=== PATIENT | female | born 1940 | race Caucasian/White ===

== ENCOUNTER → 2016-12-15 | Outpatient (CLI) | payer OTHER, MEDICAID ==
[~2016-12-15] MED LIST: DIPH25CA46 PO; ENAL5TAB PO; GABA100C8 PO; HYDR-3138 PO; METH2.5T PO; PRAV10TA2 PO; SULI200T2 PO
[2016-12-15 10:45] LABS: HEMOGLOBIN 14.9 g/dL (11.7-16.4)
[2016-12-15 11:01] LABS: BLOOD UREA NITROGEN 16 mg/dL (7-18)
[2016-12-15 11:15] LABS: ASPARTATE AMINO TRANSFERASE 17 U/L (15-37)
== END | disposition home or self-care (01) ==
LOC: STAR 09:11
PROVIDERS: ATTEND Neurological Surgery
DX: Z01.818 Encounter for other preprocedural examination (principal); R79.1 Abnormal coagulation profile
CPT/HCPCS: 36415; 71020; 80053; 81003; 85025; 85610; 85730; 93005

== ENCOUNTER 2016-12-24 09:26 | Observation (INO) | payer OTHER, MEDICAID ==
[~2016-12-24] VITALS: Ht 170.2 cm; Wt 102.0 kg
[~2016-12-24 09:26] MED LIST changes: +BACITRACIN 50,000 UNIT ONE; +BUPIVACAINE/PF 0.25% ONE; +BUPIVACAINE/PF-EPI 0.25% 1:200K ONE; +THROMBIN 5,000 UNIT VIAL TP ONE
[2016-12-24 10:41] VITALS: BP 171/84
[2016-12-24] MEDS ORDERED: ACET-1600 PO (11:02)
[2016-12-24] MEDS ORDERED: LACTATED RINGERS 1,000 ML IV SCH (11:04)
[2016-12-24] MEDS ORDERED: LIDOCAINE 1%, 2ML SQ PRN (11:30)
[2016-12-24] MEDS ORDERED: FENTANYL PF 250 MCG/5ML ONE (13:11)
[2016-12-24] MEDS ORDERED: CEFAZOLIN 1,000 MG ONE (13:18)
[2016-12-24] MEDS ORDERED: SUCCINYLCHOLINE 20 MG/ML, 10ML ONE (13:18)
[2016-12-24] MEDS ORDERED: DEXAMETHASONE 4 MG/ML, 1ML ONE (13:18)
[2016-12-24] MEDS ORDERED: METOCLOPRAMIDE 5 MG/ML, 2ML ONE (13:18)
[2016-12-24] MEDS ORDERED: PROPOFOL 10 MG/ML, 20ML ONE (13:18)
[2016-12-24] MEDS ORDERED: PROPOFOL 10 MG/ML, 50ML ONE (13:18)
[2016-12-24] MEDS ORDERED: ONDANSETRON 2MG/ML, 2ML ONE (13:18)
[2016-12-24] MEDS ORDERED: FENTANYL PF 100 MCG/2ML EPIDPUSH ONE (14:10)
[2016-12-24] MEDS ORDERED: BUPIVACAINE/PF 0.25% EPIDPUSH ONE (14:11)
[2016-12-24] MEDS ORDERED: hydrALAzine 20 MG/ML, 1ML IV PRN (14:30)
[2016-12-24] MEDS ORDERED: PROMETHAZINE 25 MG/ML, 1ML IV PRN (14:30)
[2016-12-24] MEDS ORDERED: ONDANSETRON 2MG/ML, 2ML IVPush PRN ×2 (14:30→15:30)
[2016-12-24] MEDS ORDERED: LABETALOL 5MG/ML, 20ML IV PRN (14:30)
[2016-12-24] MEDS ORDERED: HYDROmorphone 1 MG/ML, 1ML IV PRN (14:30)
[2016-12-24] MEDS ORDERED: FENTANYL PF 100 MCG/2ML ONE ×3 (14:39→16:19)
[2016-12-24] MEDS ORDERED: CYCLOBENZAPRINE 10 MG TABLET PO PRN (15:30)
[2016-12-24] MEDS ORDERED: HYDROcodone/APAP 10/325 MG TABLET PO PRN (15:30)
[2016-12-24] MEDS ORDERED: PROMETHAZINE 25 MG/ML, 1ML IM PRN (15:30)
[2016-12-24] MEDS ORDERED: PHARMACY MAY ADJ FOR RENAL FX MC PRN (15:30)
[2016-12-24] MEDS ORDERED: SENNA/DOCUSATE TABLET PO PRN (15:30)
[2016-12-24] MEDS ORDERED: MORPHINE SULFATE 4 MG/ML, 1ML IVPush PRN (15:30)
[2016-12-24] MEDS ORDERED: HYDROcodone/APAP 5/325 TABLET PO PRN ×2 (15:30)
[2016-12-24] MEDS ORDERED: BISACODYL 10 MG SUPP PR PRN (15:30)
[2016-12-24] MEDS ORDERED: OXYcodone 5 MG/5 ML ORAL.SOL UDC ONE (15:34)
[2016-12-24] MEDS: OXYcodone 5 MG/5 ML ORAL.SOL UDC PO PRN ×2 (15:40→16:00)
[2016-12-24] MEDS: FENTANYL PF 100 MCG/2ML IV PRN ×4 (15:40→16:20)
[2016-12-24 17:10] VITALS: BP 144/68
[2016-12-24] MEDS: D5%-0.9% NACL+KCL 20MEQ 1,000 ML IV SCH (19:28)
[2016-12-24] MEDS: CEFAZOLIN PMX 1GM/50ML 50 ML IVPB SCH (20:39)
[2016-12-24] MEDS: SODIUM CHLORIDE FLUSH 10ML SYR IVF SCH (20:39)
[2016-12-24 20:43] VITALS: BP 124/65
[2016-12-24] MEDS ORDERED: PRAVASTATIN 20 MG TABLET PO SCH (21:00)
[2016-12-24] MEDS: SULINDAC 200 MG TABLET PO SCH (21:00)
[2016-12-24] MEDS ORDERED: [UNRECOGNIZED DRUG - REMARK] MC PRN (21:30)
[2016-12-24] MEDS: OXYcodone/APAP 5/325MG TABLET PO PRN (23:17)
[2016-12-25 00:23] VITALS: BP 132/72
[2016-12-25] MEDS: OXYcodone/APAP 5/325MG TABLET PO PRN ×2 (03:35→11:00)
[2016-12-25 04:00] VITALS: BP 122/64
[2016-12-25] MEDS: D5%-0.9% NACL+KCL 20MEQ 1,000 ML IV SCH ×3 (04:57→11:10)
[2016-12-25] MEDS: CEFAZOLIN PMX 1GM/50ML 50 ML IVPB SCH (05:25)
[2016-12-25 08:51] VITALS: BP 110/58
[2016-12-25] MEDS ORDERED: METHOTREXATE 2.5 MG TABLET PO SCH (09:00)
[2016-12-25] MEDS: SODIUM CHLORIDE FLUSH 10ML SYR IVF SCH (10:59)
[2016-12-25] MEDS: ENALAPRIL 5MG TABLET PO SCH ×2 (10:59→11:10)
[2016-12-25] MEDS: SULINDAC 200 MG TABLET PO SCH (11:00)
[2016-12-25 11:29] VITALS: BP 145/68
[2016-12-25] MEDS ORDERED: OXYC-302 PO (12:13)
[2016-12-25] MEDS ORDERED: CEPH-368 PO (12:14)
[2016-12-25] MEDS ORDERED: CYCL5TAB PO (12:15)
== END 2016-12-25 12:35 | disposition home or self-care (01) ==
LOC: ORIP 10:14 → INTOOBSV 10:14 → 4NOR 17:07 → DCLOUNGE 12-25 12:11
PROVIDERS: ADMIT Neurological Surgery; ATTEND Neurological Surgery
DX: M43.16 Spondylolisthesis, lumbar region (principal); M48.06 Spinal stenosis, lumbar region; M54.16 Radiculopathy, lumbar region; M79.605 Pain in left leg; R20.9 Unspecified disturbances of skin sensation; I10 Essential (primary) hypertension; E66.01 Morbid (severe) obesity due to excess calories; Z68.35 Body mass index [BMI] 35.0-35.9, adult; F17.200 Nicotine dependence, unspecified, uncomplicated
CPT/HCPCS: 63047; 63048; 72100; 96365; 96375; 97161; 97165; 97530; G0378; J0330; J0690; J1100; J2405; J2704; J2765; J3010; J3480; J3490; J7120; J8610

== ENCOUNTER 2016-12-30 23:59 | Inpatient (IN) | payer OTHER, MEDICAID ==
[~2016-12-30] VITALS: Ht 170.2 cm; Wt 99.9 kg
[~2016-12-30 23:59] MED LIST changes: +ACET-1600 PO; -BACITRACIN 50,000 UNIT ONE; -BUPIVACAINE/PF 0.25% ONE; -BUPIVACAINE/PF-EPI 0.25% 1:200K ONE; +CEPH-368 PO; +CYCL5TAB PO; +OXYC-302 PO; -THROMBIN 5,000 UNIT VIAL TP ONE
[2016-12-31] MEDS ORDERED: SODIUM CHLORIDE 0.9% 1,000 ML IV ONE ×2 (01:09→02:30)
[2016-12-31] MEDS ORDERED: SODIUM CHLORIDE 0.9% 1,000ML IVBOLUS ONE (01:30)
[2016-12-31] MEDS ORDERED: SODIUM CHLORIDE FLUSH 10ML SYR IVF ONE (01:30)
[2016-12-31 01:41] LABS: HEMOGLOBIN 13.8 g/dL (11.7-16.4)
[2016-12-31 01:55] LABS: ASPARTATE AMINO TRANSFERASE 12 U/L (15-37); BLOOD UREA NITROGEN 20 mg/dL (7-18)
[2016-12-31] MEDS ORDERED: POTASSIUM CHLORIDE 10% 20 MEQ/15 ML UDC ONE (02:25)
[2016-12-31] MEDS ORDERED: POTASSIUM CHLORIDE 10% 20 MEQ/15 ML UDC PO ONE (02:30)
[2016-12-31] MEDS ORDERED: OMNIPAQUE 350 MG/ML, 100ML BOTTLE ONE (03:11)
[2016-12-31] MEDS: NS + 20MEQ KCL 1,000 ML IV SCH ×2 (03:22→13:30)
[2016-12-31] MEDS ORDERED: ENOXAPARIN 40 MG/0.4 ML SQ SCH (03:30)
[2016-12-31] MEDS: metroNIDAZOLE 500 MG TABLET PO SCH ×4 (03:30→21:23)
[2016-12-31] MEDS ORDERED: ONDANSETRON 2MG/ML, 2ML IVP PRN (03:30)
[2016-12-31] MEDS ORDERED: CYCLOBENZAPRINE 10 MG TABLET PO PRN (03:30)
[2016-12-31] MEDS ORDERED: ACETAMINOPHEN 325 MG TABLET PO PRN (03:30)
[2016-12-31] MEDS ORDERED: MAGNESIUM SULFATE PMX 2GM/50ML 50 ML IV ONE (04:00)
[2016-12-31] MEDS ORDERED: ENOXAPARIN 40 MG/0.4 ML ONE (04:26)
[2016-12-31] MEDS ORDERED: NS + 20MEQ KCL 1,000 ML IV ONE (04:26)
[2016-12-31] MEDS ORDERED: metroNIDAZOLE 500 MG TABLET ONE ×2 (04:26→09:14)
[2016-12-31] MEDS: ENALAPRIL 10 MG TABLET PO SCH (09:00)
[2016-12-31 12:45] VITALS: BP 101/61
[2016-12-31] MEDS: MORPHINE SULFATE 4 MG/ML, 1ML IVPush PRN ×2 (15:14→16:05)
[2016-12-31 19:27] VITALS: BP 107/69
[2016-12-31] MEDS: PRAVASTATIN 20 MG TABLET PO SCH (21:23)
[2016-12-31] MEDS: OXYcodone/APAP 5/325MG TABLET PO PRN (21:23)
[2017-01-01] MEDS: MORPHINE SULFATE 4 MG/ML, 1ML IVPush PRN (01:06)
[2017-01-01 01:19] VITALS: BP 100/57
[2017-01-01] MEDS: OXYcodone/APAP 5/325MG TABLET PO PRN ×4 (01:45→21:11)
[2017-01-01 05:54] LABS: HEMOGLOBIN 12.3 g/dL (11.7-16.4)
[2017-01-01 06:02] LABS: BLOOD UREA NITROGEN 19 mg/dL (7-18)
[2017-01-01 06:18] LABS: DIFF TOTAL CELLS COUNTED 100 CELL DIFF
[2017-01-01 06:19] LABS: VERIFY COUNTS? YES
[2017-01-01 07:05] VITALS: BP 112/66
[2017-01-01] MEDS: metroNIDAZOLE 500 MG TABLET PO SCH ×3 (08:09→20:42)
[2017-01-01] MEDS: ENOXAPARIN 40 MG/0.4 ML SQ SCH (08:10)
[2017-01-01] MEDS: ENALAPRIL 10 MG TABLET PO SCH (08:12)
[2017-01-01 12:38] VITALS: BP 110/68
[2017-01-01 18:29] VITALS: BP 127/74
[2017-01-01] MEDS: PRAVASTATIN 20 MG TABLET PO SCH (21:11)
[2017-01-02 02:30] VITALS: BP 113/70
[2017-01-02] MEDS: OXYcodone/APAP 5/325MG TABLET PO PRN ×4 (02:34→22:25)
[2017-01-02 08:20] VITALS: BP 115/63
[2017-01-02] MEDS: metroNIDAZOLE 500 MG TABLET PO SCH ×3 (08:46→22:24)
[2017-01-02] MEDS: ENALAPRIL 10 MG TABLET PO SCH (08:46)
[2017-01-02] MEDS: ENOXAPARIN 40 MG/0.4 ML SQ SCH (08:46)
[2017-01-02 13:20] VITALS: BP 130/83
[2017-01-02 20:15] VITALS: BP 103/64
[2017-01-02] MEDS: PRAVASTATIN 20 MG TABLET PO SCH (22:27)
[2017-01-03 02:07] VITALS: BP 111/66
[2017-01-03 06:04] LABS: BLOOD UREA NITROGEN 10 mg/dL (7-18)
[2017-01-03] MEDS ORDERED: POTASSIUM CHLORIDE 20 MEQ TAB.ER.PRT PO ONE (07:00)
[2017-01-03] MEDS ORDERED: POTASSIUM CHLORIDE 40 MEQ in SODIUM CHLORIDE 0.9% 500 ML IV ONE (07:00)
[2017-01-03 08:01] VITALS: BP 139/77
[2017-01-03] MEDS: ENALAPRIL 10 MG TABLET PO SCH (09:37)
[2017-01-03] MEDS: metroNIDAZOLE 500 MG TABLET PO SCH (09:37)
[2017-01-03] MEDS: OXYcodone/APAP 5/325MG TABLET PO PRN (09:37)
[2017-01-03] MEDS: ENOXAPARIN 40 MG/0.4 ML SQ SCH (09:40)
[2017-01-03] MEDS ORDERED: METR500T PO (11:01)
== END 2017-01-03 13:25 | disposition home or self-care (01) | DRG 871 ==
LOC: ED 23:59 → EDIP 12-31 02:43 → SUATTDRO 12-31 03:00 → 3NE 12-31 11:55
PROVIDERS: ADMIT Emergency Medicine
PROC: 0T9B70Z Drainage of Bladder with Drainage Device, Via Natural or Artificial Opening (ICD-10-PCS; principal; 2016-12-31)
DX: A41.9 Sepsis, unspecified organism (principal); E43 Unspecified severe protein-calorie malnutrition; A04.7 Enterocolitis due to Clostridium difficile; E87.1 Hypo-osmolality and hyponatremia; E87.2 Acidosis; D64.9 Anemia, unspecified; D75.89 Other specified diseases of blood and blood-forming organs; E78.5 Hyperlipidemia, unspecified; E86.0 Dehydration; E87.6 Hypokalemia; I10 Essential (primary) hypertension; F17.210 Nicotine dependence, cigarettes, uncomplicated; I73.9 Peripheral vascular disease, unspecified; M06.9 Rheumatoid arthritis, unspecified; Z66 Do not resuscitate; Z86.19 Personal history of other infectious and parasitic diseases; Z68.34 Body mass index [BMI] 34.0-34.9, adult; Z82.49 Family history of ischemic heart disease and other diseases of the circulatory system
CPT/HCPCS: 36415; 74022; 74177; 80048; 80053; 81001; 83605; 83690; 83735; 84100; 84132; 85025; 87086; 87324; 89055; 93005; 96360; 96361; J1650; J2405; J3480; Q9967; J3475; J7030

== ENCOUNTER 2018-07-21 06:59 | Emergency (ER) | payer OTHER, MEDICAID ==
[~2018-07-21] VITALS: Ht 170.2 cm; Wt 100.2 kg
[~2018-07-21 06:59] MED LIST changes: +DEXA4TAB PO; +GABA-826 PO; -GABA100C8 PO; -HYDR-3138 PO; +HYDR-3237 PO; +HYDR-3245 PO; +LENA25CA PO; +METR500T PO
[2018-07-21] MEDS ORDERED: ASPIRIN 81 MG TABLET CHEW PO ONE (07:30)
[2018-07-21] MEDS ORDERED: ONDANSETRON 2MG/ML, 2ML IVPush ONE (07:30)
[2018-07-21] MEDS ORDERED: MORPHINE SULFATE 4 MG/ML, 1ML IVPush PRN (07:30)
[2018-07-21] MEDS ORDERED: ONDANSETRON 2MG/ML, 2ML ONE (07:41)
[2018-07-21] MEDS ORDERED: MORPHINE SULFATE 4 MG/ML, 1ML ONE (07:42)
[2018-07-21] MEDS ORDERED: ASPIRIN 81 MG TABLET CHEW ONE (07:42)
[2018-07-21 07:54] LABS: ALANINE AMINOTRANSFERASE 17 U/L (12-78); ANION GAP 9 mmol/L (5-15); CALCIUM 8.2 mg/dL (8.5-10.1); CHLORIDE 107 mmol/L (98-107); CREATININE 0.69 mg/dL (0.55-1.02)
[2018-07-21 07:58] LABS: ALKALINE PHOSPHATASE 132 U/L (45-117); BILIRUBIN,TOTAL 0.6 mg/dL (0.2-1.0); TOTAL PROTEIN 6.8 g/dL (6.4-8.2); TROPONIN I < 0.015 ng/mL (0.000-0.045)
[2018-07-21 08:20] LABS: BASOPHILS # (AUTO) 0.01 x10^3/uL (0-0.1); BASOPHILS % (AUTO) 0 % (0-1); EOSINOPHILS # (AUTO) 0.09 x10^3/uL (0-0.4); EOSINOPHILS % (AUTO) 2 % (1-7); LYMPHOCYTES # (AUTO) 0.83 x10^3/uL (1-3.4); LYMPHOCYTES % (AUTO) 13 % (22-44); MD NO; MEAN CORPUSCULAR HEMOGLOBIN 32.7 pg (27.0-34.8); MEAN CORPUSCULAR HGB CONC 32.2 g/dL (32.4-35.8); MEAN CORPUSCULAR VOLUME 101.5 fL (80-100); MEAN PLATELET VOLUME 8.1 fL (7.4-10.4); MONOCYTES # (AUTO) 0.97 x10^3/uL (0.2-0.8); MONOCYTES % (AUTO) 16 % (2-9); NEUTROPHILS # (AUTO) 4.35 x10^3/uL (1.8-6.8); NEUTROPHILS % (AUTO) 70 % (42-75); PLATELET COUNT 169 x10^3/uL (130-400); RED BLOOD COUNT 3.34 x10^6/uL (3.82-5.3)
[2018-07-21] MEDS ORDERED: OMNIPAQUE 350 MG/ML, 100ML BOTTLE ONE (09:39)
[2018-07-21 11:52] VITALS: BP 123/55
== END 2018-07-21 11:55 | disposition home or self-care (01) ==
LOC: ED 09:28
DX: R07.9 Chest pain, unspecified (principal); I10 Essential (primary) hypertension; E78.5 Hyperlipidemia, unspecified; Z86.19 Personal history of other infectious and parasitic diseases; Z98.1 Arthrodesis status; Z87.891 Personal history of nicotine dependence
CPT/HCPCS: 36415; 71045; 71275; 80053; 83880; 84484; 85025; 93005; 96374; 96375; 99285; J2405; Q9967

== ENCOUNTER 2018-09-21 07:19 | Inpatient (IN) | payer MEDICARE, MEDICAID ==
[~2018-09-21] VITALS: Ht 170.2 cm; Wt 94.8 kg
--- NOTE | 2018-09-21 08:05 | NUR ---
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
--- NOTE | 2018-09-21 08:22 | NUR ---
PT. WAS BROUGHT BACK FROM THE LOBBY. PT. WAS PLACED ON THE MONITOR. IV ACCESS ESTABLISHED. PT.'S SATS ARE 88% ON ROOM AIR. PT. PLACED ON 02 AT 1 LITER SATS INCREASED TO 94%. PT. HAS INSPIRATORY WHEEZING NOTED. PT. CAP REFILL IS BRISK, PULSES ARE +2 THROUGHOUT. SIDERAILS REMAIN UP X 2 WITH THE CALL LIGHT IN PLACE.
[2018-09-21] MEDS ORDERED: SODIUM CHLORIDE 0.9% 1,000 ML IV ONE (08:59)
[2018-09-21] MEDS ORDERED: SODIUM CHLORIDE FLUSH 10ML SYR IVF ONE (09:00)
[2018-09-21] MEDS ORDERED: ALBUTEROL/IPRATROPIUM 2.5MG/0.5MG, 3 ML ONE (09:12)
--- NOTE | 2018-09-21 09:27 | NUR ---
PT. TOLERATED HER BREATHING TX WELL. IV ACCESS WAS ESTABLISHED, NS BOLUS INFUSING. PT. REMAINS MONITORED. VSS.
[2018-09-21] MEDS ORDERED: ALBUTEROL/IPRATROPIUM 2.5MG/0.5MG, 3 ML NEB ONE (09:30)
[2018-09-21] MEDS ORDERED: SODIUM CHLORIDE 0.9% 1,000ML IVBOLUS ONE (09:30)
[2018-09-21] MEDS ORDERED: ALBUTEROL SULFATE 2.5 MG/3 ML NPPB ONE (09:30)
[2018-09-21 09:45] LABS: MEAN CORPUSCULAR HEMOGLOBIN 32.1 pg (27.0-34.8); MEAN CORPUSCULAR HGB CONC 32.9 g/dL (32.4-35.8); MEAN CORPUSCULAR VOLUME 97.7 fL (80-100); MEAN PLATELET VOLUME 9.3 fL (7.4-10.4); PLATELET COUNT 129 x10^3/uL (130-400); RED BLOOD COUNT 2.46 x10^6/uL (3.82-5.3); RED CELL DISTRIBUTION WIDTH 20.5 % (9.6-15.2)
[2018-09-21 09:57] LABS: ALANINE AMINOTRANSFERASE 16 U/L (12-78); ALBUMIN 2.9 g/dL (3.4-5.0); ANION GAP 6 mmol/L (5-15); CALCIUM 8.4 mg/dL (8.5-10.1); CHLORIDE 107 mmol/L (98-107); CREATININE 1.01 mg/dL (0.55-1.02)
[2018-09-21 09:59] LABS: ALKALINE PHOSPHATASE 149 U/L (45-117); BILIRUBIN,TOTAL 0.7 mg/dL (0.2-1.0); TOTAL PROTEIN 6.7 g/dL (6.4-8.2)
[2018-09-21 10:02] LABS: BASOPHILS # (AUTO) 0.01 x10^3/uL (0-0.1); BASOPHILS % (AUTO) 1 % (0-1); EOSINOPHILS # (AUTO) 0.07 x10^3/uL (0-0.4); EOSINOPHILS % (AUTO) 2 % (1-7); LYMPHOCYTES # (AUTO) 0.53 x10^3/uL (1-3.4); LYMPHOCYTES % (AUTO) 18 % (22-44); MD NO; MONOCYTES # (AUTO) 0.39 x10^3/uL (0.2-0.8); MONOCYTES % (AUTO) 13 % (2-9); NEUTROPHILS % (AUTO) 66 % (42-75)
--- NOTE | 2018-09-21 10:21 | NUR ---
REPORT RECEIVED FROM HUSSEIN GROVER. ASSUMED CARE OF PT. PT CURRENTLY RESTING ON GURNEY. NAD NOTED. SKIN PWD. RESP EVEN AND EQAUL. PT AWARE WE ARE WAITING FOR ADMISISON. PT ON CONT BP, CARDIAC AND O2 MONITORS. PT DENIES PAIN/NEEDS AT THIS TIME. CALL LIGHT WITHIN REACH. WILL CONT TO MONITOR PT.
[2018-09-21] MEDS ORDERED: ONDANSETRON 2MG/ML, 2ML IVPush PRN (11:00)
[2018-09-21] MEDS ORDERED: LABETALOL 5MG/ML, 20ML IVPush PRN (11:00)
[2018-09-21] MEDS ORDERED: ONDANSETRON ODT 4 MG PO PRN (11:00)
--- NOTE | 2018-09-21 11:00 | NUR ---
PT UP TO RESTROOM AT THIS TIME. PT ABLE TO TRANSFER SELF FROM GURNEY TO WHEELCHAIR WITH SBA. PT NOW RESTING ON GURNEY. NAD NOTED. PT REPOSITIONED FOR COMFORT. PT ON CONT BP, CARDIAC AND O2 MONITORS. CALL LIGHT WITHIN REACH. WILL CONT TO MONITOR PT.
[2018-09-21] MEDS: LACTATED RINGERS 1,000 ML IV SCH ×2 (11:30→16:44)
[2018-09-21 11:46] LABS: FREE T4 (FREE THYROXINE) 1.02 ng/dL (0.76-1.46)
[2018-09-21] MEDS ORDERED: HYDROcodone/APAP 10/325 MG TABLET PO PRN (12:30)
--- NOTE | 2018-09-21 12:30 | NUR ---
PT CURRENTLY DOZING ON ANDREA. NAD NOTED. SKIN PWD. RESP EVEN AND EQAUL. PT AWARE THAT WE ARE WAITING FOR ADMISSION. PT DENIES ANY PAIN/NEEDS. CALL LIGHT WITHIN REACH. WILL CONT TO MONITOR PT.
--- NOTE | 2018-09-21 13:21 | NUR ---
PT PROVIDED WITH MEAL TRAY AND POSITIONED FOR COMFORT. PT AWARE WE ARE STILL WAITING FOR ADMISSION. REPORT TO HUSSEIN ADAMS WHO ASSUMED CARE OF PT.
--- NOTE | 2018-09-21 14:43 | NUR ---
VS UPDATED AND WNL. PT AWAITING ONCOLOGY BED.
--- NOTE | 2018-09-21 15:52 | NUR ---
VS UPDATED AND WNL. PATIENT ASSISTED TO THE BR. URINE OBTAINED AND SENT TO LAB. PT MOVED TO HOSPITAL BED AND IS COMFORTABLE NOW.
--- NOTE | 2018-09-21 16:00 | NUR ---
SBAR TELEPHONE REPORT GIVEN TO HUSSEIN GARCIA. PT READY TO GO TO HOSPITAL ROOM.
[2018-09-21 16:15] LABS: MICROSCOPIC AUTO
[2018-09-21 16:21] LABS: CULTURE INDICATED? YES
[2018-09-21 16:27] VITALS: BP 94/53
[2018-09-21] MEDS: CEFTRIAXONE PMX 2GM/50ML 50 ML IV SCH (17:45)
[2018-09-21 18:55] VITALS: BP 111/61
[2018-09-21] MEDS: PRAVASTATIN 20 MG TABLET PO SCH (20:38)
[2018-09-21] MEDS: SULINDAC 200 MG TABLET PO SCH (20:38)
[2018-09-22] VITALS (7 sets, daily range): BP systolic 105–132; BP diastolic 63–70
[2018-09-22 04:55] LABS: MEAN CORPUSCULAR HGB CONC 33.4 g/dL (32.4-35.8); MEAN CORPUSCULAR VOLUME 98.6 fL (80-100); MEAN PLATELET VOLUME 8.4 fL (7.4-10.4); PLATELET COUNT 108 x10^3/uL (130-400); RED BLOOD COUNT 2.25 x10^6/uL (3.82-5.3); RED CELL DISTRIBUTION WIDTH 20.8 % (9.6-15.2)
[2018-09-22 05:14] LABS: ALANINE AMINOTRANSFERASE 13 U/L (12-78); ALBUMIN 2.3 g/dL (3.4-5.0); ANION GAP 9 mmol/L (5-15); CALCIUM 7.4 mg/dL (8.5-10.1); CHLORIDE 111 mmol/L (98-107)
[2018-09-22 05:15] LABS: BASOPHILS # (AUTO) 0.02 x10^3/uL (0-0.1); BASOPHILS % (AUTO) 1 % (0-1); EOSINOPHILS # (AUTO) 0.14 x10^3/uL (0-0.4); EOSINOPHILS % (AUTO) 5 % (1-7); LYMPHOCYTES # (AUTO) 0.72 x10^3/uL (1-3.4); LYMPHOCYTES % (AUTO) 25 % (22-44); MD SCAN; MONOCYTES # (AUTO) 0.43 x10^3/uL (0.2-0.8); MONOCYTES % (AUTO) 15 % (2-9); NEUTROPHILS # (AUTO) 1.65 x10^3/uL (1.8-6.8); NEUTROPHILS % (AUTO) 56 % (42-75)
[2018-09-22 05:24] LABS: ALKALINE PHOSPHATASE 131 U/L (45-117); BILIRUBIN,TOTAL 0.5 mg/dL (0.2-1.0); THYROID STIMULATING HORMONE 0.111 mIU/L (0.358-3.740); TOTAL PROTEIN 5.6 g/dL (6.4-8.2)
[2018-09-22] MEDS ORDERED: ACETAMINOPHEN 325 MG TABLET PO ONE (09:00)
[2018-09-22] MEDS: SULINDAC 200 MG TABLET PO SCH ×2 (09:25→20:05)
[2018-09-22 09:54] LABS: CLOSTRIDIUM DIFFICILE ANTIGEN POSITIVE; CLOSTRIDIUM DIFFICILE TOXIN NEGATIVE (Negative)
[2018-09-22] MEDS: VANCOMYCIN 50 MG/ML ORAL SUSP PO SCH ×3 (11:35→22:33)
[2018-09-22] MEDS: CEFTRIAXONE PMX 2GM/50ML 50 ML IV SCH (16:58)
[2018-09-22] MEDS: PRAVASTATIN 20 MG TABLET PO SCH (20:05)
[2018-09-23 00:06] VITALS: BP 123/58
[2018-09-23] MEDS: VANCOMYCIN 50 MG/ML ORAL SUSP PO SCH ×4 (04:02→23:21)
[2018-09-23 06:30] LABS: MEAN CORPUSCULAR HEMOGLOBIN 32.1 pg (27.0-34.8); MEAN CORPUSCULAR HGB CONC 33.7 g/dL (32.4-35.8); MEAN CORPUSCULAR VOLUME 95.4 fL (80-100); PLATELET COUNT 121 x10^3/uL (130-400); RED BLOOD COUNT 2.66 x10^6/uL (3.82-5.3); RED CELL DISTRIBUTION WIDTH 21.4 % (9.6-15.2)
[2018-09-23 06:36] LABS: CHLORIDE 110 mmol/L (98-107)
[2018-09-23 07:02] LABS: ALANINE AMINOTRANSFERASE 13 U/L (12-78); ALBUMIN 2.4 g/dL (3.4-5.0); ALKALINE PHOSPHATASE 127 U/L (45-117); ANION GAP 9 mmol/L (5-15); BASOPHILS # (AUTO) 0.01 x10^3/uL (0-0.1); BASOPHILS % (AUTO) 0 % (0-1); BILIRUBIN,TOTAL 0.7 mg/dL (0.2-1.0); CALCIUM 7.7 mg/dL (8.5-10.1); CREATININE 0.77 mg/dL (0.55-1.02); EOSINOPHILS # (AUTO) 0.18 x10^3/uL (0-0.4); EOSINOPHILS % (AUTO) 5 % (1-7); LYMPHOCYTES # (AUTO) 0.66 x10^3/uL (1-3.4); LYMPHOCYTES % (AUTO) 20 % (22-44); MD SCAN; MONOCYTES # (AUTO) 0.49 x10^3/uL (0.2-0.8); MONOCYTES % (AUTO) 14 % (2-9); NEUTROPHILS # (AUTO) 2.06 x10^3/uL (1.8-6.8); NEUTROPHILS % (AUTO) 61 % (42-75); TOTAL PROTEIN 5.7 g/dL (6.4-8.2)
[2018-09-23] MEDS ORDERED: POTASSIUM CHLORIDE 20 MEQ TAB.ER.PRT PO ONE ×2 (07:30→11:30)
[2018-09-23 07:50] VITALS: BP 128/75
[2018-09-23] MEDS: SULINDAC 200 MG TABLET PO SCH ×2 (09:12→21:01)
[2018-09-23] MEDS ORDERED: MAGNESIUM SULFATE PMX 2GM/50ML 50 ML IV ONE (11:00)
[2018-09-23 13:20] VITALS: BP 109/64
[2018-09-23 18:43] VITALS: BP 137/69
[2018-09-23] MEDS: PRAVASTATIN 20 MG TABLET PO SCH (21:01)
[2018-09-23 23:52] VITALS: BP 112/67
[2018-09-24] MEDS: VANCOMYCIN 50 MG/ML ORAL SUSP PO SCH ×3 (04:37→17:06)
[2018-09-24 05:26] LABS: CHLORIDE 110 mmol/L (98-107)
[2018-09-24 05:28] LABS: MEAN CORPUSCULAR HEMOGLOBIN 32.7 pg (27.0-34.8); MEAN CORPUSCULAR HGB CONC 34.2 g/dL (32.4-35.8); MEAN CORPUSCULAR VOLUME 95.7 fL (80-100); MEAN PLATELET VOLUME 8.1 fL (7.4-10.4); PLATELET COUNT 124 x10^3/uL (130-400); RED BLOOD COUNT 2.54 x10^6/uL (3.82-5.3); RED CELL DISTRIBUTION WIDTH 21.8 % (9.6-15.2)
[2018-09-24 05:47] LABS: ALANINE AMINOTRANSFERASE 13 U/L (12-78); ALBUMIN 2.4 g/dL (3.4-5.0); ALKALINE PHOSPHATASE 128 U/L (45-117); ANION GAP 7 mmol/L (5-15); BILIRUBIN,TOTAL 0.9 mg/dL (0.2-1.0); CALCIUM 7.9 mg/dL (8.5-10.1); CREATININE 0.78 mg/dL (0.55-1.02); TOTAL PROTEIN 5.8 g/dL (6.4-8.2)
[2018-09-24 06:05] LABS: MD YES
[2018-09-24 06:08] LABS: EOS#(MANUAL) 0.26 x10^3/uL (0.0-0.4); EOS% (MANUAL) 7 % (1-7); LYMPH#(MANUAL) 1.07 x10^3/uL (1-3.4); LYMPHS% (MANUAL) 29 % (22-44); MONOS#(MANUAL) 0.41 x10^3/uL (0.3-2.7); MONOS% (MANUAL) 11 % (2-9); SEG#(MANUAL) 1.96 x10^3/uL (1.8-6.8); SEGS% (MANUAL) 53 % (42-75)
[2018-09-24 06:12] LABS: <PLATELET ESTIMATE> DECREASED; <PLT MORPHOLOGY> NORMAL PLT MORPH; ANISOCYTOSIS 1+
[2018-09-24 06:23] LABS: OVALOCYTES 1+; SPHEROCYTES 1+
[2018-09-24 06:24] LABS: POLYCHROMASIA 1+
[2018-09-24] MEDS: SULINDAC 200 MG TABLET PO SCH (09:26)
[2018-09-24 09:59] VITALS: BP 135/70
[2018-09-24] MEDS ORDERED: VANC1VIA3 PO (14:12)
[2018-09-24 14:59] VITALS: BP 109/68
== END 2018-09-24 17:48 | disposition home or self-care (01) | DRG 840 ==
LOC: ED 09:25 → EDIP 10:08 → 3NW 15:49 → EDIP 15:49 → 3NW 16:59
PROVIDERS: ADMIT Internal Medicine; ATTEND Internal Medicine
PROC: 30233N1 Transfusion of Nonautologous Red Blood Cells into Peripheral Vein, Percutaneous Approach (ICD-10-PCS; principal; 2018-09-22)
DX: C90.00 Multiple myeloma not having achieved remission (principal); K85.90 Acute pancreatitis without necrosis or infection, unspecified; A04.72 Enterocolitis due to Clostridium difficile, not specified as recurrent; D61.818 Other pancytopenia; N39.0 Urinary tract infection, site not specified; R05 Cough; E78.5 Hyperlipidemia, unspecified; E87.6 Hypokalemia; I10 Essential (primary) hypertension; M06.9 Rheumatoid arthritis, unspecified; Z66 Do not resuscitate; Z86.19 Personal history of other infectious and parasitic diseases; Z87.891 Personal history of nicotine dependence
CPT/HCPCS: 36415; 71045; 80053; 81001; 83605; 83690; 83735; 84100; 84145; 84439; 84443; 85025; 86850; 86900; 86923; 87040; 87086; 87324; 87493; 93005; 94640; 96360; 96361; 99285; G0378; J0696; J3370; J7613; J7620; J3475; J7030; J7120; P9040

== ENCOUNTER 2018-11-15 14:16 | Inpatient (IN) | payer MEDICARE, MEDICAID ==
[~2018-11-15] VITALS: Ht 170.2 cm; Wt 98.1 kg
[~2018-11-15 14:16] MED LIST changes: +VANC1VIA3 PO
[2018-11-15] MEDS ORDERED: MAALOX/HYOSCYAMINE/LIDOCAINE 45 ML BTL PO ONE (15:00)
[2018-11-15] MEDS ORDERED: SODIUM CHLORIDE FLUSH 10ML SYR IVF ONE (15:00)
[2018-11-15 15:21] LABS: ALANINE AMINOTRANSFERASE 22 U/L (12-78); ALBUMIN 2.9 g/dL (3.4-5.0); ANION GAP 9 mmol/L (5-15); CALCIUM 8.1 mg/dL (8.5-10.1); CHLORIDE 112 mmol/L (98-107)
[2018-11-15 15:26] LABS: ALKALINE PHOSPHATASE 434 U/L (45-117); BASOPHILS # (AUTO) 0.01 x10^3/uL (0-0.1); BASOPHILS % (AUTO) 0 % (0-1); BILIRUBIN,TOTAL 0.9 mg/dL (0.2-1.0); EOSINOPHILS # (AUTO) 0.02 x10^3/uL (0-0.4); EOSINOPHILS % (AUTO) 0 % (1-7); LYMPHOCYTES # (AUTO) 0.99 x10^3/uL (1-3.4); LYMPHOCYTES % (AUTO) 18 % (22-44); MD MORPH REVIEW ONLY; MEAN CORPUSCULAR HEMOGLOBIN 33.3 pg (27.0-34.8); MEAN CORPUSCULAR HGB CONC 33.4 g/dL (32.4-35.8); MEAN CORPUSCULAR VOLUME 99.7 fL (80-100); MEAN PLATELET VOLUME 7.9 fL (7.4-10.4); MONOCYTES # (AUTO) 0.82 x10^3/uL (0.2-0.8); MONOCYTES % (AUTO) 15 % (2-9); NEUTROPHILS # (AUTO) 3.77 x10^3/uL (1.8-6.8); NEUTROPHILS % (AUTO) 67 % (42-75); PLATELET COUNT 198 x10^3/uL (130-400); RED BLOOD COUNT 2.92 x10^6/uL (3.82-5.3); RED CELL DISTRIBUTION WIDTH 23.1 % (9.6-15.2); TOTAL PROTEIN 6.5 g/dL (6.4-8.2); TROPONIN I < 0.015 ng/mL (0.000-0.045)
[2018-11-15 15:56] LABS: ANISOCYTOSIS 2+; MICROCYTOSIS 1+; OVALOCYTES 1+; POLYCHROMASIA 1+; TEAR DROPS 1+
[2018-11-15 15:57] LABS: <PLATELET ESTIMATE> ADEQUATE; <PLT MORPHOLOGY> NORMAL PLT MORPH
[2018-11-15] MEDS ORDERED: MAALOX/HYOSCYAMINE/LIDOCAINE 45 ML BTL ONE (18:17)
[2018-11-15] MEDS ORDERED: ONDANSETRON 2MG/ML, 2ML ONE (18:29)
[2018-11-15] MEDS ORDERED: ASPIRIN 81 MG TABLET CHEW ONE (18:29)
[2018-11-15] MEDS ORDERED: ASPIRIN 81 MG TABLET CHEW PO ONE (18:30)
[2018-11-15] MEDS ORDERED: ONDANSETRON 2MG/ML, 2ML IVPush ONE (18:30)
[2018-11-15] MEDS ORDERED: MORPHINE SULFATE 4 MG/ML, 1ML ONE (18:30)
[2018-11-15] MEDS ORDERED: MORPHINE SULFATE 4 MG/ML, 1ML IVPush ONE (18:30)
--- NOTE | 2018-11-15 18:39 | NUR ---
PT TO ED FOR EPIGASTRIC CP X3 DAYS. EDMD PRESENT FOR ASSESSMENT. ORDERS RECEIVED. IV ESTABLISHED AND PT MEDICATED PER NOV. CONNECTED TO ALL MONITORS. VSS. PT STATES PAIN RELEIF WITH MORPHINE. AWAITING FURTHER ORDERS.
--- NOTE | 2018-11-15 19:38 | NUR ---
UA COLLECTED AND SENT. VSS. PT RESTING WITH LIGHTS DIMMED. AWAITING BED ASSIGNMENT.
[2018-11-15 20:02] LABS: MICROSCOPIC NOT IND
[2018-11-15 20:10] LABS: CULTURE INDICATED? NO
[2018-11-15 22:24] VITALS: BP 147/66
[2018-11-15] MEDS ORDERED: ACETAMINOPHEN 325 MG TABLET PO PRN (22:30)
[2018-11-15] MEDS ORDERED: DOCUSATE 100 MG CAPSULE PO PRN (22:30)
[2018-11-15] MEDS ORDERED: LABETALOL 5MG/ML, 20ML IVPush PRN (22:30)
[2018-11-15] MEDS ORDERED: TEMAZEPAM 15 MG CAPSULE PO PRN (22:30)
[2018-11-15] MEDS ORDERED: ONDANSETRON ODT 4 MG PO PRN (22:30)
[2018-11-15] MEDS ORDERED: LIDODERM 5% PATCH TD PRN (22:30)
[2018-11-15] MEDS: HEPARIN 5,000 UNITS/ML, 1ML SQ SCH (23:04)
[2018-11-15] MEDS: PANTOPRAZOLE 40 MG IV IVPush SCH (23:28)
[2018-11-15] MEDS: FAMOTIDINE 20 MG/2 ML IVPush SCH (23:28)
[2018-11-15 23:51] LABS: TROPONIN I < 0.015 ng/mL (0.000-0.045)
[2018-11-16 02:00] VITALS: BP 119/63
[2018-11-16 04:30] LABS: MEAN CORPUSCULAR HEMOGLOBIN 32.7 pg (27.0-34.8); MEAN CORPUSCULAR VOLUME 99.3 fL (80-100); MEAN PLATELET VOLUME 7.5 fL (7.4-10.4); PLATELET COUNT 159 x10^3/uL (130-400); RED BLOOD COUNT 2.43 x10^6/uL (3.82-5.3); RED CELL DISTRIBUTION WIDTH 22.4 % (9.6-15.2)
[2018-11-16 04:42] LABS: ANION GAP 5 mmol/L (5-15); CALCIUM 7.3 mg/dL (8.5-10.1); CHLORIDE 112 mmol/L (98-107); CREATININE 0.72 mg/dL (0.55-1.02)
[2018-11-16 04:45] LABS: TROPONIN I < 0.015 ng/mL (0.000-0.045)
[2018-11-16 05:39] LABS: MD YES
[2018-11-16 05:42] LABS: ANISOCYTOSIS 1+; BASOS#(MANUAL) 0.04 x10^3/uL (0-0.1); BASOS% (MANUAL) 1 % (0-1); LYMPH#(MANUAL) 0.86 x10^3/uL (1-3.4); LYMPHS% (MANUAL) 20 % (22-44); METAMYELOCYTES# (MANUAL) 0.04 x10^3/uL (0-0); METAMYELOCYTES% (MANUAL) 1 % (0-1); MONOS#(MANUAL) 0.73 x10^3/uL (0.3-2.7); MONOS% (MANUAL) 17 % (2-9); OVALOCYTES 1+; POLYCHROMASIA 1+; SEG#(MANUAL) 2.62 x10^3/uL (1.8-6.8); SEGS% (MANUAL) 61 % (42-75)
[2018-11-16 05:43] LABS: <PLATELET ESTIMATE> ADEQUATE; <PLT MORPHOLOGY> NORMAL PLT MORPH; TEAR DROPS 1+
[2018-11-16] MEDS: HEPARIN 5,000 UNITS/ML, 1ML SQ SCH ×3 (05:52→23:22)
[2018-11-16 07:35] VITALS: BP 133/64
[2018-11-16] MEDS: PANTOPRAZOLE 40 MG IV IVPush SCH (08:07)
[2018-11-16] MEDS ORDERED: REGADENOSON 0.4 MG/5 ML SYRINGE ONE (08:27)
[2018-11-16] MEDS: FAMOTIDINE 20 MG/2 ML IVPush SCH ×2 (08:45→21:18)
[2018-11-16] MEDS ORDERED: OMNIPAQUE 350 MG/ML, 100ML BOTTLE ONE (12:08)
[2018-11-16 15:00] VITALS: BP 129/80
[2018-11-16 18:58] LABS: CLOSTRIDIUM DIFFICILE ANTIGEN NEGATIVE; CLOSTRIDIUM DIFFICILE TOXIN NEGATIVE (Negative)
[2018-11-16 19:03] VITALS: BP 160/72
[2018-11-16] MEDS: MORPHINE SULFATE 4 MG/ML, 1ML IVPush PRN (19:15)
[2018-11-17 00:35] VITALS: BP 154/75
[2018-11-17] MEDS ORDERED: LENA25CA PO (01:36)
[2018-11-17] MEDS ORDERED: HYDR-3307 PO (01:36)
[2018-11-17] MEDS ORDERED: [UNRECOGNIZED DRUG - CODE] IV (01:36)
[2018-11-17] MEDS ORDERED: ENAL20TA PO (01:36)
[2018-11-17] MEDS ORDERED: PRAV10TA2 PO (01:36)
[2018-11-17] MEDS ORDERED: SULI200T2 PO (01:36)
[2018-11-17] MEDS: HEPARIN 5,000 UNITS/ML, 1ML SQ SCH ×2 (05:10→14:30)
[2018-11-17 07:22] VITALS: BP 148/71
[2018-11-17] MEDS ORDERED: ENALAPRIL 20MG TABLET PO SCH (09:00)
[2018-11-17] MEDS: FAMOTIDINE 20 MG/2 ML IVPush SCH (09:26)
[2018-11-17] MEDS: MORPHINE SULFATE 4 MG/ML, 1ML IVPush PRN (09:39)
[2018-11-17] MEDS ORDERED: OMEP-110 PO (13:03)
[2018-11-17] MEDS ORDERED: ASPI-515 PO (13:03)
[2018-11-17] MEDS ORDERED: PRAVASTATIN 20 MG TABLET PO SCH (21:00)
[2018-11-20] MEDS ORDERED: LENALIDOMIDE 25 MG PO SCH (09:00)
== END 2018-11-17 15:18 | disposition home or self-care (01) | DRG 392 ==
LOC: ED 18:31 → EDIP 19:00 → 5SO 20:59 → DCLOUNGE 11-17 15:07
PROVIDERS: ADMIT Hospitalist; ATTEND Hospitalist
DX: K21.9 Gastro-esophageal reflux disease without esophagitis (principal); C90.00 Multiple myeloma not having achieved remission; R07.2 Precordial pain; M06.9 Rheumatoid arthritis, unspecified; I10 Essential (primary) hypertension; G89.29 Other chronic pain; I27.20 Pulmonary hypertension, unspecified; N28.1 Cyst of kidney, acquired; F17.210 Nicotine dependence, cigarettes, uncomplicated; Z66 Do not resuscitate; E78.5 Hyperlipidemia, unspecified; Z96.659 Presence of unspecified artificial knee joint; Z98.1 Arthrodesis status; Z82.49 Family history of ischemic heart disease and other diseases of the circulatory system; Z92.21 Personal history of antineoplastic chemotherapy
CPT/HCPCS: 36415; 71046; 71275; 74174; 76700; 78452; 80048; 80053; 81003; 83690; 84484; 85025; 85379; 87324; 93005; 93017; 93306; 96374; G0378; J2405; J2785; Q9967; A9502; C9113; C9898; J3490